=== PATIENT | male | born 1980 | race African-American/Black ===

== ENCOUNTER 2020-05-28 18:44 | Emergency (ER) | payer OTHER ==
[~2020-05-28] VITALS: Ht 182.9 cm; Wt 107.0 kg
--- NOTE | 2020-05-28 19:49 | PHYS DOC ---
General Adult EDM: Chief Complaint: RIB PAIN HPI: HPI: 40-year-old male presents with left rib pain. The patient runs in the flexed regularly. He is a soldier in the . He does not remember any particular injury, but for the last 4 days he has had pain in the superficial lateral ribs on the left side from just under his shoulder blade around to underneath the pectoralis muscle. Since it has not gone away he want to make sure there was not a more significant issue. It is mostly painful when he runs or when he pumps his arms back and forth vigorously. It is not worse with deep breathing. He has no shortness of breath. He does not disrupt his daily activities. He denies fever chills. Review of Systems: Review of Systems: Constitutional: Denies fever or chills Eyes: Denies change in visual acuity HENT: Denies nasal congestion or sore throat Respiratory: Denies cough or shortness of breath Cardiovascular: Denies chest pain or edema GI: Denies abdominal pain, nausea, vomiting, bloody stools or diarrhea : Denies dysuria Musculoskeletal: Left lateral rib pain Integument: Denies rash Neurologic: Denies headache, focal weakness or sensory changes Endocrine: Denies polyuria or polydipsia Lymphatic: Denies swollen glands Psychiatric: Denies depression or anxiety Heart Score: Risk Factors: Risk Factors: DM, Current or recent (<one month) smoker, HTN, HLP, family history of CAD, obesity. Risk Scores: Score 0 - 3: 2.5% MACE over next 6 weeks - Discharge Home Score 4 - 6: 20.3% MACE over next 6 weeks - Admit for Clinical Observation Score 7 - 10: 72.7% MACE over next 6 weeks - Early Invasive Strategies Physical Exam: PE: Constitutional: Well developed, well nourished, no acute distress, non-toxic appearance. [] HENT: Normocephalic, atraumatic, bilateral external ears normal, oropharynx moist, no oral exudates, nose normal. [] Eyes: PERRLA, EOMI, conjunctiva normal, no discharge. [] Neck: Normal range of motion, no tenderness, supple, no stridor. [] Cardiovascular:Heart rate regular rhythm, no murmur [] Lungs & Thorax: Bilateral breath sounds clear to auscultation. Tenderness over the lateral left ribs 8 through 12. No obvious deformity or skin abnormality. [] Abdomen: Bowel sounds normal, soft, no tenderness, no masses, no pulsatile masses. [] Skin: Warm, dry, no erythema, no rash. [] Back: No tenderness, no CVA tenderness. [] Extremities: No tenderness, no cyanosis, no clubbing, ROM intact, no edema. [] Neurologic: Alert and oriented X 3, normal motor function, normal sensory function, no focal deficits noted. [] Psychologic: Affect normal, judgement normal, mood normal. [] EKG: EKG: [] Radiology/Procedures: Radiology/Procedures: [] Impressions: INDICATION: Reason: chest wall pain / Spl. Instructions: / History: COMPARISON: None. FINDINGS: 2 view of chest obtained. Cardiac silhouette is unremarkable. No focal airspace consolidation or pulmonary edema. No gross osseous destructive lesion. IMPRESSION: * No focal airspace consolidation or edema. Electronically signed by: Min Aguilar MD (05/28/2020 7:51 PM) [id number] DICTATED AND SIGNED BY: MIN AGUILAR MD DATE: 05/28/201950 CC: BEULAH SARAH DO; AUSTIN MELGOZA ~ Course & Med Decision Making: Course & Med Decision Making Pertinent Labs and Imaging studies reviewed. (See chart for details) The patient's x-ray is negative for acute findings. He does not have a spontaneous pneumo. I believe this is musculoskeletal, likely due to a overuse from all of his exercise. I have advised that he take it easy with weightlifting that strains the latissimus dorsi muscles. He will also take ibuprofen as needed. He is stable for discharge at this time. [] Dragon Disclaimer: Dragon Disclaimer: This electronic medical record was generated, in whole or in part, using a voice recognition dictation system. Departure Departure: Impression: Primary Impression: Strain of latissimus dorsi muscle Qualified Codes: S29.012A - Strain of muscle and tendon of back wall of thorax, initial encounter Disposition: HOME/RESIDENCE PRIOR TO ADM Condition: STABLE Referrals: AUSTIN MELGOZA (PCP) Justification of Admission: Justification of Admission: Justification of Admission Dx: N/A BEULAH SARAH DO May 28, 2020 19:49
--- NOTE | 2020-05-28 19:54 | RAD ---
INDICATION: Reason: chest wall pain / Spl. Instructions: / History: COMPARISON: None. FINDINGS: 2 view of chest obtained. Cardiac silhouette is unremarkable. No focal airspace consolidation or pulmonary edema. No gross osseous destructive lesion. IMPRESSION: * No focal airspace consolidation or edema. Electronically signed by: Myles Aguilar MD (05/28/2020 7:51 PM) [id number]
[2020-05-28 20:00] VITALS: BP 125/73
== END 2020-05-28 20:00 | disposition home or self-care (01) ==
LOC: ER 18:44
DX: S29.012A Strain of muscle and tendon of back wall of thorax, initial encounter (principal); X58.XXXA Exposure to other specified factors, initial encounter; Y93.89 Activity, other specified; Y92.89 Other specified places as the place of occurrence of the external cause; Y99.8 Other external cause status
CPT/HCPCS: 71046; 99283

== ENCOUNTER 2020-07-15 14:20 | Emergency (ER) | payer OTHER ==
[~2020-07-15] VITALS: Ht 182.9 cm; Wt 111.0 kg
[2020-07-15 14:33] VITALS: BP 148/79
--- NOTE | 2020-07-15 14:42 | PHYS DOC ---
Past History Past Medical History: No Pertinent History Past Surgical History: Other Additional Past Surgical Histo: RIGHT KNEE Alcohol Use: None General Adult EDM: Chief Complaint: BACK PAIN OR INJURY HPI: HPI: Patient is a 40-year-old male presents with a 1 month history of atraumatic, nonradiating left posterior lateral left rib pain. Pain is worse with certain range of motion. Patient denies any recent illnesses. Patient has any fevers, chills, cough, shortness of breath. Patient denies any urinary difficulties or hematuria. Patient denies any radiation to the legs. Patient denies any weakness or numbness of the legs. Patient was seen here a month ago and had x- rays which are negative but pain persist and is currently 2 out of 10 and is dull in nature Review of Systems: Review of Systems: Constitutional: Denies fever or chills Eyes: Denies change in visual acuity HENT: Denies nasal congestion or sore throat Respiratory: Denies cough or shortness of breath Cardiovascular: Denies chest pain or edema GI: Denies abdominal pain, nausea, vomiting, bloody stools or diarrhea : Denies dysuria Musculoskeletal: Complains of back pain but no joint pain Integument: Denies rash Neurologic: Denies headache, focal weakness or sensory changes Endocrine: Denies polyuria or polydipsia Lymphatic: Denies swollen glands Psychiatric: Denies depression or anxiety Allergies: Allergies: Allergies Coded Allergies Type Severity Reaction Last Updated Verified No Known Drug Allergies 07/15/20 No Physical Exam: PE: Constitutional: Well developed, well nourished, no acute distress, non-toxic appearance. [] HENT: Normocephalic, atraumatic, bilateral external ears normal, no trismus nose normal. [] Eyes: PERRLA, EOMI, conjunctiva normal, no discharge. [] Neck: Normal range of motion, no tenderness, supple, no stridor. [] Cardiovascular:Heart rate regular rhythm, peripheral pulses are intact cap refill is brisk Lungs & Thorax: Bilateral breath sounds clear, no respiratory distress, tender to palpate left posterior lateral left ribs Abdomen: soft, no tenderness, no masses, no pulsatile masses. [] Skin: Warm, dry, no erythema, no rash. [] Back: Tender to palpate left posterior lateral left ribs Extremities: No tenderness, no cyanosis, no clubbing, ROM intact, no edema. [] Neurologic: Alert and oriented X 3, normal motor function, normal sensory function, no focal deficits noted. [] Psychologic: Affect normal, judgement normal, mood normal. [] Current Patient Data: Vital Signs: Vital Signs Date Time Temp Pulse Resp B/P (MAP) Pulse Ox O2 Delivery O2 Flow Rate FiO2 07/15/20 14:33 98.0 84 18 148/79 (102) 100 Room Air EKG: EKG: [] Radiology/Procedures: Radiology/Procedures: [][place] [address] IMAGING REPORT Signed PATIENT: CLIFF ZURITA ACCOUNT: [id number] : 1980 LOCATION: ER AGE: 40 SEX: M EXAM STATUS: REG ER ORD. PHYSICIAN: DEE DEE NUNES MD REASON: LEFT POST/LATERAL RIB PAIN PROCEDURE: RIBS LEFT AND PA CHEST Examination: RIBS LEFT AND PA CHEST History: Reason: LEFT POST/LATERAL RIB PAIN / Spl. Instructions: / History: Comparison/Correlation: None Findings: Frontal view of the chest was obtained. 3 images of the left ribs were provided. Heart size and pulmonary vasculature are normal. No infiltrate or pleural effusion. No pneumothorax. Bony structures are unremarkable. No displaced left rib fracture. Impression: No infiltrate. Left ribs are intact. Electronically signed by: Estevan Bowen MD (07/15/2020 3:04 PM) [facility] DICTATED AND SIGNED BY: ESTEVAN BOWEN MD DATE: 07/15/20 1504 CC: DEE DEE NUNES MD; AUSTIN MELGOZA ~ Heart Score: Risk Factors: Risk Factors: DM, Current or recent (<one month) smoker, HTN, HLP, family history of CAD, obesity. Risk Scores: Score 0 - 3: 2.5% MACE over next 6 weeks - Discharge Home Score 4 - 6: 20.3% MACE over next 6 weeks - Admit for Clinical Observation Score 7 - 10: 72.7% MACE over next 6 weeks - Early Invasive Strategies Course & Med Decision Making: Course & Med Decision Making Pertinent Labs and Imaging studies reviewed. (See chart for details) [] 32-year-old male presents with over 1 month of left posterior lateral rib pain. Dedicated x-rays are negative. Patient is in no respiratory distress. Patient has no radicular symptoms. Patient is neurovascular intact in his lower extremities. Patient has no hematuria or difficulty with urination. Discussed with patient need for follow-up with a primary care doctor may need to MRI of his torso symptoms persist. Dragon Disclaimer: Dragon Disclaimer: This electronic medical record was generated, in whole or in part, using a voice recognition dictation system. Departure Departure: Impression: Primary Impression: Left-sided chest wall pain Disposition: DC HOME SELF CARE/HOMELESS Condition: STABLE Referrals: AUSTIN MELGOZA (PCP) 2-3 DAYS Patient Instructions: Chest Wall Pain Additional Instructions: EMERGENCY DEPARTMENT GENERAL DISCHARGE INSTRUCTIONS THANK YOU for coming to [facility] Emergency Department (ED) today and trusting us with your care. We trust that you had a positive experience in our Emergency Department. If you wish to speak to the department Management you can contact the insole department worker at . YOUR FOLLOW UP INSTRUCTIONS ARE FOLLOWS: Do you have a private doctor? If you do not have a private doctor, please ask for a resource list of physicians or clinics that may be able to assist you with follow up care. The Emergency Physician has interpreted your x-rays. The X-ray specialist will also review them. If there is a change in the findings you will be notified in 48 hours when at all possible. A lab test or lab culture may have been done, your results will be reviewed and you will be notified if you need a change in treatment. ADDITIONAL INSTRUCTIONS AND INFORMATION Your care today has been supervised by a physician who is specially trained in emergency care. Many problems require more than one evaluation for a complete diagnosis and treatment. We recommend that you schedule your follow up appointment as recommended to ensure complete treatment of your illness or injury. If you are unable to obtain follow up care and continue to have a problem, or if your condition worsens we recommend that you return to the ED. We are not able to safely determine your condition over the phone nor are we able to give sound medical advice over the phone. For these safety reasons, if you call for medical advice we will ask you to come to the ED for further evaluation If you have any questions regarding these discharge instructions please call the ED at . SAFETY INFORMATION In the interest of safety, wellness, and injury prevention; we encourage you to wear your seatbelt, if you smoke; quit smoking, and we encourage your family to use protective helmet for bicycling and other sporting events that present an increased risk for head injury. IF YOUR SYMPTOMS WORSEN OR NEW SYMPTOMS DEVELOP, OR YOU HAVE CONCERNS ABOUT YOUR CONDITION; OR IF YOUR CONDITION WORSENS WHILE YOU ARE WAITING FOR YOUR FOLLOW UP APPOINTMENT; EITHER CONTACT YOUR PRIMARY CARE DOCTOR, THE PHYSICIAN WHOSE NAME AND NUMBER YOU WERE GIVEN, OR RETURN TO THE ED IMMEDIATELY. DEE DEE NUNES MD Jul 15, 2020 14:42
--- NOTE | 2020-07-15 15:07 | RAD ---
Examination: RIBS LEFT AND PA CHEST History: Reason: LEFT POST/LATERAL RIB PAIN / Spl. Instructions: / History: Comparison/Correlation: None Findings: Frontal view of the chest was obtained. 3 images of the left ribs were provided. Heart size and pulmonary vasculature are normal. No infiltrate or pleural effusion. No pneumothorax. Bony structures are unremarkable. No displaced left rib fracture. Impression: No infiltrate. Left ribs are intact. Electronically signed by: Estevan Dumont MD (07/15/2020 3:04 PM) [facility]
== END 2020-07-15 15:25 | disposition home or self-care (01) ==
LOC: ER 14:20
DX: R07.81 Pleurodynia (principal); M54.89 Other dorsalgia
CPT/HCPCS: 71101; 99283